=== PATIENT | female | born 1995 | race Caucasian/White ===

== ENCOUNTER 2016-07-06 18:55 | Emergency (ER) | payer SELFPAY ==
[2016-07-06] MEDS ORDERED: CEFTRIAXONE 1 GM VIAL ONE (20:19)
[2016-07-06] MEDS ORDERED: SODIUM CHLORIDE 0.9% 0 ML IV ONE (20:20)
== END 2016-07-06 23:15 | disposition home or self-care (01) ==
LOC: ER 18:55
DX: O23.11 Infections of bladder in pregnancy, first trimester (principal); Z3A.01 Less than 8 weeks gestation of pregnancy; N83.12 Corpus luteum cyst of left ovary; F17.290 Nicotine dependence, other tobacco product, uncomplicated
CPT/HCPCS: 36415; 76817; 80053; 81001; 84702; 85025; 86901; 87077; 87088; 87186; 87491; 87591; 87800; 96372